=== PATIENT | male | born 2000 | race African-American/Black ===

== ENCOUNTER 2024-02-28 10:34 | Emergency (ER) | payer OTHER ==
[~2024-02-28] VITALS: Ht 185.4 cm; Wt 85.0 kg
[2024-02-28 10:35] VITALS: BP 134/86; TEMP 97.6; O2SAT 97
[2024-02-28] MEDS ORDERED: CETI5SOL3 PO (11:39)
[2024-02-28] MEDS ORDERED: CLOB0.0526 TOP (11:39)
== END 2024-02-28 12:42 | disposition home or self-care (01) ==
LOC: M ED 10:34
DX: L30.9 Dermatitis, unspecified (principal); L20.9 Atopic dermatitis, unspecified; Z88.2 Allergy status to sulfonamides; Z79.899 Other long term (current) drug therapy